=== PATIENT | female | born 1970 | race African-American/Black ===

== ENCOUNTER 2022-04-07 05:00 | Day surgery (SDC) | payer MEDICAID ==
[~2022-04-07] VITALS: Ht 160 cm; Wt 66.4 kg
[2022-04-07 07:11] LABS: HCG,QUAL RESULT NEGATIVE (NEGATIVE)
[2022-04-07] MEDS ORDERED: SIMETHICONE 40 MG/0.6 ML ML ONE (07:17)
[2022-04-07] MEDS: MEPERIDINE 100 MG INJ. 100 MG/ML VIAL ONE ×3 (07:44→07:51)
[2022-04-07] MEDS: MIDAZOLAM HCL 5 MG/5 ML VIAL ONE ×4 (07:44→07:57)
[2022-04-07] MEDS ORDERED: ONDANSETRON HCL 4 MG/2 ML VIAL ONE (08:19)
[2022-04-07 13:48] VITALS: BP_SYST 125
== END 2022-04-07 09:40 | disposition home or self-care (01) ==
LOC: SMU 05:00 → SDS 05:00
PROVIDERS: ATTEND Internal Medicine Gastroenterology
DX: R10.32 Left lower quadrant pain (principal); K63.5 Polyp of colon; K64.8 Other hemorrhoids; R19.4 Change in bowel habit; Z79.899 Other long term (current) drug therapy; Z20.822 Contact with and (suspected) exposure to COVID-19
CPT/HCPCS: 45380; 87426; 84703; 36415; 88305; 99152; 99153; G0378; J2250; J2405; J2175